=== PATIENT | female | born 1975 | race Caucasian/White ===

== ENCOUNTER 2016-11-12 17:07 | Emergency (ER) | payer MEDICAID ==
[~2016-11-12 17:07] MED LIST: COLACE100 MG PO; NOR10T PO
[2016-11-12 21:32] VITALS: BP 137/76
== END 2016-11-12 21:32 | disposition home or self-care (01) ==
LOC: ED 17:07
DX: S86.912A Strain of unspecified muscle(s) and tendon(s) at lower leg level, left leg, initial encounter (principal); S39.012A Strain of muscle, fascia and tendon of lower back, initial encounter; W01.0XXA Fall on same level from slipping, tripping and stumbling without subsequent striking against object, initial encounter; Y93.89 Activity, other specified; Y99.8 Other external cause status; Y92.512 Supermarket, store or market as the place of occurrence of the external cause
CPT/HCPCS: J1885; J3010